=== PATIENT | male | born 1955 | race African-American/Black ===

== ENCOUNTER 2017-06-16 21:28 | Inpatient (IN) | payer OTHER ==
[~2017-06-16] VITALS: Ht 182.9 cm; Wt 61.0 kg
[2017-06-16] MEDS: ASPIRIN 81 MG TAB PO STA ×2 (21:53→21:55)
[2017-06-16 22:10] LABS: BASOPHILS % 0.5 % (0.0-2.0); EOSINOPHILS # 0.1 10^3/ul (0.0-0.5); EOSINOPHILS % 2.2 % (0.0-7.0); HEMATOCRIT 33.2 % (42.0-52.0); HEMOGLOBIN 10.2 g/dl (14.0-18.0); LYMPHOCYTES # 1.1 10^3/ul (0.8-2.9); LYMPHOCYTES % 26.1 % (15.0-51.0); MEAN CORPUSCULAR HEMOGLOBIN 25.5 pg (29.0-33.0); MEAN CORPUSCULAR HGB CONC 30.7 g/dl (32.0-37.0); MEAN PLATELET VOLUME 12.1 fl (7.4-10.4); MONOCYTE # 0.4 10^3/ul (0.3-0.9); MONOCYTES % 10.1 % (0.0-11.0); NEUTROPHIL # 2.5 10^3/ul (1.6-7.5); NEUTROPHILS % 60.9 % (39.0-77.0); PLATELET COUNT 183 10^3/UL (140-415); RED CELL DISTRIBUTION WIDTH 15.4 % (11.5-14.5); WHITE BLOOD COUNT 4.1 10^3/ul (4.8-10.8)
--- NOTE | 2017-06-16 22:25 | RADRPT ---
PROCEDURE: XR Chest. CLINICAL INDICATION: Chest pain TECHNIQUE: Single frontal view of the chest was obtained COMPARISON: None FINDINGS: The heart is enlarged. The thoracic aorta is calcified. The lungs are clear. There is no pleural effusion or pneumothorax. RPTAT: AA IMPRESSION: Mild cardiomegaly. Calcified aorta consistent with atherosclerotic disease. .Quintin Brewer MD, MD Date Time Electronically viewed and signed by .Quintin Brewer MD, on 06/16/2017 22:25 .S/
[2017-06-16 22:29] LABS: CALCIUM 8.9 mg/dl (8.4-10.2); CREATININE 0.59 mg/dl (0.61-1.24); POTASSIUM 3.8 mmol/L (3.5-5.1)
[2017-06-16] MEDS ORDERED: ONDANSETRON 4 MG INJ IV STA (22:38)
[2017-06-16] MEDS ORDERED: HYDROmorphONE 1 MG/ML SYG IV STA (22:38)
[2017-06-16 22:40] LABS: TROPONIN-I 0.027 ng/ml (0.00-0.12)
[2017-06-16] MEDS ORDERED: FLUCONAZOLE 400 MG/NS (PMX) 200 ML IVPB ONE (23:00)
--- NOTE | 2017-06-16 23:44 | ERD ---
ER Documentation Chief Complaint Chief Complaint stabbing CP intermittant x 2wks, worse w/ cough, fever 101.6 1 hr ago HPI This is 62-year-old male with a history of HIV with AIDS progression. He states he is having pain in his mouth and esophagus when he swallows. He does have severe chronic thrush. Said he had a 101.6 temperature before coming to the ER tonight but no temperature here. He said he took his temperature orally. The patient says he had a productive clear cough as well. No vomiting diarrhea no headache no stiff neck no photophobia. The patient's viral load is 120,000, CD4 count is 107 at last check. The patient says he is unable to eat solid foods but can sip water slowly. He complains of sharp pain in the mid chest every time he swallows and only when he swallows. The patient will not speak to me and writes on a pad of paper, he says it hurts too much to talk ROS All systems reviewed and are negative except as per history of present illness. Allergies Allergies: Coded Allergies: aspirin (Verified Allergy, Unknown, 06/16/17) PMhx/Soc History of Surgery: No Anesthesia Reaction: No Hx Neurological Disorder: No Hx Respiratory Disorders: No Hx Cardiac Disorders: No Hx Psychiatric Problems: No Hx Miscellaneous Medical Probl: Yes (HIV ) Hx Alcohol Use: No Hx Substance Use: Yes Hx Tobacco Use: Yes Smoking Status: Current every day smoker FmHx Family History: No coronary disease Physical Exam Vitals Vital Signs Date Time Temp Pulse Resp B/P Pulse Ox O2 Delivery O2 Flow Rate FiO2 06/16/17 22:06 Nasal Cannula 2 06/16/17 21:41 98.6 108 22 100 Physical Exam Const: Well-developed, well-nourished Head: Atraumatic, normocephalic Eyes: Normal Conjunctiva, PERRLA, EOMI, normal sclera, no nystagmus ENT: Normal External Ears, severe oral pharyngeal thrush Neck: Full range of motion. No meningismus, no lymphadenopathy. Resp: Clear to auscultation bilaterally, no wheezing, rhonchi, rales Cardio: Regular rate and rhythm, no murmurs, S1 S2 present Abd: Soft, non tender x 4, non distended. Normal bowel sounds, no guarding or rebound, no pulsitile abdominal masses or bruits Skin: No petechiae or rashes, no ecchymosis , no maculopapular rash Back: No midline or flank tenderness Ext: No cyanosis, or edema, FROM x 4, normal inspection, neurovascularly intact x 4 Neur: Awake and alert, STR 5/5 x 4, sensation intact x 4, no focal findings, cerebellum intact Psych: Normal Mood and Affect Result Diagram: 06/16/17214406/16/172144 Results 24 hrs Laboratory Tests Test 06/16/17 21:45 White Blood Count 4.110^3/ul Red Blood Count 4.0010^6/ul Hemoglobin 10.2g/dl Hematocrit 33.2% Mean Corpuscular Volume 83.0fl Mean Corpuscular Hemoglobin 25.5pg Mean Corpuscular Hemoglobin Concent 30.7g/dl Red Cell Distribution Width 15.4% Platelet Count 87839^3/UL Mean Platelet Volume 12.1fl Neutrophils % 60.9% Lymphocytes % 26.1% Monocytes % 10.1% Eosinophils % 2.2% Basophils % 0.5% Nucleated Red Blood Cells % 0.0/100WBC Neutrophils # 2.510^3/ul Lymphocytes # 1.110^3/ul Monocytes # 0.410^3/ul Eosinophils # 0.110^3/ul Basophils # 0.010^3/ul Nucleated Red Blood Cells # 0.010^3/ul Sodium Level 143mmol/L Potassium Level 3.8mmol/L Chloride Level 103mmol/L Carbon Dioxide Level 28mmol/L Anion Gap 16 Blood Urea Nitrogen 19mg/dl Creatinine 0.59mg/dl Glucose Level 134mg/dl Calcium Level 8.9mg/dl Troponin I 0.027ng/ml B-Type Natriuretic Peptide 5720PG/ML HIV (1&2) Antibody REACTIVE Current Medications Medications (Trade) Dose Ordered Sig/Deborah Route PRN Reason Start Time Stop Time Status Last Admin Dose Admin Aspirin 162 mg 162 mg ONCE STAT PO 06/16/17 21:42 06/16/17 21:43 DC Fluconazole (Diflucan 400 Mg/ NS (Pmx)) 200 ml @ 100 mls/hr ONCE ONCE IVPB 06/16/17 23:00 06/17/17 00:59 06/16/17 23:35 Hydromorphone HCl (Dilaudid) 1 mg ONCE STAT IV 06/16/17 22:38 06/16/17 22:40 DC 06/16/17 22:59 Ondansetron HCl 4 mg 4 mg ONCE STAT IV 06/16/17 22:38 06/16/17 22:40 DC 06/16/17 22:59 Sodium Chloride (NS) 1,000 ml @ 80 mls/hr [id number] IV 06/17/17 00:00 06/17/17 12:29 Ondansetron HCl (Zofran Inj) 4 mg BRIDGE ORDER PRN IV NAUSEA AND/OR VOMITING 06/17/17 00:00 06/17/17 23:59 Acetaminophen (Tylenol Tab) 650 mg ER BRIDGE PRN PO MILD PAIN/FEVER 06/17/17 00:00 06/17/17 23:59 Procedures/MDM PROCEDURE: XR Chest. CLINICAL INDICATION: Chest pain TECHNIQUE: Single frontal view of the chest was obtained COMPARISON: None FINDINGS: The heart is enlarged. The thoracic aorta is calcified. The lungs are clear. There is no pleural effusion or pneumothorax. RPTAT: AA IMPRESSION: Mild cardiomegaly. Calcified aorta consistent with atherosclerotic disease. .Quintin Brewer MD, MD Date Time Electronically viewed and signed by .Quintin Brewer MD, MD on 06/16/2017 22: 25 .S/ CC: GEOFFREY CALABRESE DO Patient's white blood count is 4.1, chest x-ray is clear. Patient is having severe esophageal thrush I did give him a dose of 400 mg of intravenous fluconazole. Patient has limited ability to swallow his saliva and mild fluids. The patient said he had a 101.6 fever but there is none here. We will send off a urinalysis and get urine and blood cultures and admit to the hospital for Aneta esophagitis that is severe enough is limiting his oral intake EKG: Rate/Rhythm: Sinus tachycardia heart rate 104 QRS, ST, QT: NORMAL MS, QRS, QT] Impression: NORMAL EKG Departure Diagnosis: Primary Impression: Aneta esophagitis Additional Impression: AIDS Condition: Stable BELLA MOODY DO Jun 16, 2017 23:44
[2017-06-17] MEDS ORDERED: SOD CHLORIDE 0.9% 1,000 ML IV SCH
[2017-06-17] MEDS ORDERED: ACETAMINOPHEN 325 MG TAB PO PRN
[2017-06-17 01:05] VITALS: PULSE 104
[2017-06-17 01:56] VITALS: BP 130/91; PULSE 100; RESP 18
[2017-06-17 02:04] VITALS: Ht 182.9 cm; Wt 61.0 kg
[2017-06-17] MEDS ORDERED: GABA800T PO (03:31)
[2017-06-17] MEDS ORDERED: LANT3I SC (03:31)
[2017-06-17] MEDS ORDERED: METF500T4 PO (03:31)
[2017-06-17] MEDS ORDERED: LISI10TA2 PO (03:31)
[2017-06-17] MEDS ORDERED: ACETAMINOPHEN 650 MG SUPP PR PRN (04:00)
[2017-06-17] MEDS ORDERED: ALBUTEROL/IPRATROPIUM (NEB) 3 ML AMP HHN PRN (04:00)
[2017-06-17] MEDS ORDERED: LIDOCAINE 2% VISC 15 ML CUP PO PRN (04:00)
[2017-06-17] MEDS ORDERED: NACL 0.9% 3 ML SYG IV SCH (04:00)
[2017-06-17] MEDS ORDERED: OXYCODONE/ACETAMINOPHEN (5/325) TAB PO PRN (04:00)
[2017-06-17] MEDS ORDERED: ONDANSETRON 4 MG INJ IV PRN ×2 (04:00)
[2017-06-17] MEDS ORDERED: GLUCAGON 1 MG INJ IM PRN (04:15)
[2017-06-17] MEDS ORDERED: DEXTROSE 50% 50 ML SYRINGE IV PRN ×2 (04:15)
[2017-06-17] MEDS ORDERED: GLUCOSE GEL 15 GRAM TUBE PO PRN ×2 (04:15)
[2017-06-17] MEDS ORDERED: GLUCOSE GEL 15 GRAM TUBE BUCCAL PRN (04:15)
[2017-06-17] MEDS ORDERED: LORAZEPAM 2 MG INJ IV PRN ×2 (04:30)
[2017-06-17] MEDS: morphine 2 MG INJ IV PRN ×3 (04:54→22:35)
[2017-06-17] MEDS: NYSTATIN SUSP 5 ML CUP PO SCH ×5 (04:54→21:29)
[2017-06-17] MEDS: DEXTROSE 5%-0.45% NACL 1,000 ML IV SCH ×3 (05:01→23:47)
[2017-06-17 06:35] LABS: BASOPHILS % 0.5 % (0.0-2.0); EOSINOPHILS # 0.1 10^3/ul (0.0-0.5); EOSINOPHILS % 1.7 % (0.0-7.0); HEMATOCRIT 31.5 % (42.0-52.0); HEMOGLOBIN 9.8 g/dl (14.0-18.0); LYMPHOCYTES # 1.1 10^3/ul (0.8-2.9); LYMPHOCYTES % 25.5 % (15.0-51.0); MEAN CORPUSCULAR HEMOGLOBIN 25.9 pg (29.0-33.0); MEAN CORPUSCULAR HGB CONC 31.1 g/dl (32.0-37.0); MEAN CORPUSCULAR VOLUME 83.1 fl (82.0-101.0); MEAN PLATELET VOLUME 11.6 fl (7.4-10.4); MONOCYTE # 0.4 10^3/ul (0.3-0.9); MONOCYTES % 9.9 % (0.0-11.0); NEUTROPHIL # 2.6 10^3/ul (1.6-7.5); NEUTROPHILS % 61.9 % (39.0-77.0); PLATELET COUNT 184 10^3/UL (140-415); RED BLOOD COUNT 3.79 10^6/ul (4.70-6.10); RED CELL DISTRIBUTION WIDTH 15.6 % (11.5-14.5); WHITE BLOOD COUNT 4.2 10^3/ul (4.8-10.8)
[2017-06-17 06:50] LABS: ALBUMIN 3.5 g/dl (3.3-4.9); ALBUMIN/GLOBULIN RATIO 0.85; BILIRUBIN,INDIRECT 0.2 mg/dl (0-1.1); BILIRUBIN,TOTAL 0.2 mg/dl (0.2-1.3); CALCIUM 8.2 mg/dl (8.4-10.2); CREATININE 0.59 mg/dl (0.61-1.24); MAGNESIUM 1.7 mg/dl (1.7-2.5); PHOSPHORUS 3.6 mg/dl (2.5-4.9); TOTAL PROTEIN 7.6 g/dl (6.1-8.1)
[2017-06-17] MEDS: INSULIN ASPART [NOVOLOG] 3 ML PEN SC SCH ×4 (07:00→21:00)
[2017-06-17 07:03] LABS: TROPONIN-I 0.027 ng/ml (0.00-0.12)
[2017-06-17 07:11] LABS: CK-MB 3.09 ng/ml (0.0-2.4)
--- NOTE | 2017-06-17 07:43 | HP ---
Date/Time of Note Date/Time of Note DATE: 06/17/17 TIME: 07:31 Assessment/Plan VTE Prophylaxis VTE Prophylaxis Intervention: heparin Lines/Catheters IV Catheter Type (from Nrsg): Saline Lock Assessment/Plan Assessment/Plan 1. Dysphagia and odynophagia, secondary to oral/esophageal Aneta -IV fluconazole, nystatin swish and swallow, viscous lidocaine -ID and a GI consult -Pain management 2. History of HIV, AIDS per CD4 count (per report 107) -Will check CD4 count and viral load to verify -will start him on prophylactic daily Bactrim and weekly azithromycin -ID consult 3. Type 2 diabetes Check A1c Insulin while in-house 4. Alcohol abuse -Patient has been drinking half a gallon of chidi on a daily basis, last drink was yesterday He will be placed on a banana bag, Librium, IV fluid, with as needed Ativan for withdrawal symptoms 5. Chest pain, rule out ACS -Aspirin, supplemental oxygen, with as needed nitro morphine -Trend troponins -Obtain a 2D echo -Will consider cardiology consult 6. Diarrhea -Check stool culture and C. difficile -will leave the decision up to ID to see if workup for opportunistic infection is warranted HPI/ROS Admit Date/Time Admit Date/Time Jun 17, 2017 at 00:02 Hx of Present Illness This is a 62-year-old male with a history of hypertension, type 2 diabetes, hep C, HIV, alcohol abuse who presented to the ER complaining of "thrush", difficulty and painful swallowing. Note that patient is having pain when speaking and as such gathering information has been difficult. Symptoms started several weeks ago. He also reported productive cough and a diarrhea described as loose. Also complains of diffuse chest pain for the past 2 weeks, describes as stabbing, usually associated with cough and when taking a deep breath. He said prior to arrival to the ER, he had temperature of 101.6. He has a history of bilateral knee surgery and for the most part is wheelchair dependent. He also reported to the infection for which he has been taking amoxicillin. Reported recent CD4 counts of 107 and viral load of 120,000. He said he has been compliant with his HIV medications. When he presented to the ER he was tachycardic with a heart rate of around 110 and a respiratory rate of 22 otherwise his vitals were stable. Chest x-ray shows mild cardiomegaly otherwise no acute findings. Lab shows WBC of 4.1, hemoglobin 10.2. BNP is 5700. He said he has been drinking on a daily basis usually about half a gallon of chidi. Last drink was yesterday. . PMH/Family/Social Social History Smoking Status: Current every day smoker Exam/Review of Systems Vital Signs Vitals Vital Signs Date Time Temp Pulse Resp B/P Pulse Ox O2 Delivery O2 Flow Rate FiO2 06/17/17 01:56 99.9 100 18 130/91 100 Room Air 06/16/17 22:06 2 Intake and Output 06/16/17 06/16/17 06/17/17 15:00 23:00 07:00 Output Total 350 ml Balance -350 ml Exam Constitutional: distress Head: atraumatic, normocephalic Eyes: PERRL Respiratory: diminished breath sounds Cardiovascular: other (Tachycardic with regular rhythm) Gastrointestinal: soft, tender Musculoskeletal: other (Muscle wasting noted. Bilateral knees with old surgical scar) Labs Result Diagram: 06/17/1760406/17/17 0604 Medications Medications Current Medications Sodium Chloride 1,000 ml @ 80 mls/hr [id number] IV ; Start 06/17/17 at 00:00; Stop 06/17/17 at 12:29 Dextrose/Sodium Chloride (D5-1/2ns) 1,000 ml @ 100 mls/hr Q10H IV Last administered on 06/17/17 05:01; Admin Dose 100 MLS/HR; Start 06/17/17 at 03: 47 Ondansetron HCl (Zofran Inj) 4 mg Q6H PRN IV NAUSEA AND/OR VOMITING; Start at 04:00 Acetaminophen (Tylenol Supp) 650 mg Q6H PRN [place] PAIN LEVEL 1-3 OR FEVER; Start 06/17/17 at 04:00 Oxycodone/ Acetaminophen (Percocet (5/ 325)) 2 tab Q6H PRN PO SEVERE PAIN LEVEL 7-10; Start 06/17/17 at 04:00 Morphine Sulfate (morphine) 2 mg Q4H PRN IV SEVERE PAIN LEVEL 7-10 Last administered on 06/17/17 04:54; Admin Dose 2 MG; Start 06/17/17 at 04:00 Enoxaparin Sodium (Lovenox) 40 mg DAILY SC ; Start 06/17/17 at 09:00 Diagnostic Test (Pha) (Accu-Chek) 1 ea 02 XX ; Start 06/18/17 at 02:00 Insulin Aspart (Novolog Insulin Pen) NOVOLOG *MILD* ALGORI... Q6 SC Last administered on 06/17/17t 07:00; Admin Dose 2 UNIT; Start 06/17/17 at 06:00 Gabapentin (Neurontin) 800 mg TID PO ; Start 06/17/17 at 09:00 Insulin Glargine (Lantus) 20 unit QHS SC ; Start 06/17/17 at 21:00 Lisinopril (Zestril) 10 mg QHS PO ; Start 06/17/17 at 21:00 Trimethoprim/ Sulfamethoxazole (Bactrim (Ds)) 1 tab BID PO ; Start 06/17/17 at 09:00 Azithromycin 1200 mg 1,200 mg Q7D PO ; Start 06/17/17 at 09:00 Fluconazole (Diflucan 200 Mg/ NS (Pmx)) 100 ml @ 100 mls/hr DAILY IVPB ; Start 06/17/17 at 09:00 Nystatin (Nystatin Susp) 5 ml QID PO Last administered on 06/17/17t 04:54; Admin Dose 5 ML; Start 06/17/17 at 04:00 Lidocaine (Xylocaine (Viscous)) 15 ml QID PRN PO oral pain; Start 06/17/17 at 04:00 Nicotine (Nicoderm 21 Mg/ 24hr) 1 patch DAILY TRANSDERM ; Start 06/17/17 at 09: 00 Chlordiazepoxide 50 mg 50 mg TID PO ; Start 06/17/17 at 09:00 Multivitamins/ Thiamine HCl/ Folic Acid/Sodium Chloride (Mvi Adult/ Vitamin B1/ Folic Acid/NS) 1,011.2 ml @ 125 mls/ hr DAILY@09 IVPB ; Start 06/17/17 at 09: 00; Stop 06/20/17 at 15:00 Lorazepam (Ativan) 2 mg Q1H PRN IV withdrawal; Start 06/17/17 at 04:30 Lorazepam (Ativan) 1 mg Q3H PRN IV anxiety; Start 06/17/17 at 04:30 Metoprolol Tartrate (Lopressor) 12.5 mg BID NGT ; Start 06/17/17 at 09:00 Miscellaneous Information 1 ea NOTE XX ; Start 06/17/17 at 04:15 Glucose (Glutose) 15 gm Q15M PRN PO DECREASED GLUCOSE; Start 06/17/17 at 04:15 Glucose (Glutose) 22.5 gm Q15M PRN PO DECREASED GLUCOSE; Start 06/17/17 at 04: 15 Dextrose (D50w Syringe) 25 ml Q15M PRN IV DECREASED GLUCOSE; Start 06/17/17 at 04:15 Dextrose (D50w Syringe) 50 ml Q15M PRN IV DECREASED GLUCOSE; Start 06/17/17 at 04:15 Glucagon (Glucagen) 1 mg Q15M PRN IM DECREASED GLUCOSE; Start 06/17/17 at 04: 15 Glucose (Glutose) 15 gm Q15M PRN BUCCAL DECREASED GLUCOSE; Start 06/17/17 at 04:15 NUNO JIMÉNEZ MD Jun 17, 2017 07:41
[2017-06-17 07:53] VITALS: BP 117/78; RESP 20
[2017-06-17] MEDS ORDERED: FLUCONAZOLE 200 MG/NS (PMX) 100 ML IVPB SCH ×2 (09:00→15:00)
[2017-06-17] MEDS ORDERED: TRIMETHOPRIM/SULFAMETHOX (DS) TAB PO SCH (09:00)
[2017-06-17] MEDS ORDERED: AZITHROMYCIN 600 MG TAB PO SCH (09:00)
[2017-06-17 09:51] LABS: TROPONIN-I 0.027 ng/ml (0.00-0.12)
[2017-06-17 09:52] LABS: CK-MB 3.36 ng/ml (0.0-2.4)
[2017-06-17] MEDS: MULTIVITAMINS 10 ML, THIAMINE 100 MG, FOLIC ACID 1 MG in SOD CHLORIDE 0.9% 1,000 ML IVPB SCH (09:53)
[2017-06-17] MEDS: GABAPENTIN 400 MG CAP PO SCH ×3 (09:54→21:29)
[2017-06-17] MEDS: NICOTINE (21 MG/24 HR) PATCH TRANSDERM SCH (09:54)
[2017-06-17] MEDS: METOPROLOL 25 MG TAB NGT SCH ×2 (09:56→21:32)
[2017-06-17] MEDS: ENOXAPARIN 40 MG/0.4 ML SYG SC SCH (10:02)
[2017-06-17] MEDS: CHLORDIAZEPOXIDE 25 MG CAP PO SCH ×3 (10:02→21:31)
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
--- NOTE | 2017-06-17 13:02 | CONS ---
Date/Time of Note Date/Time of Note DATE: 06/17/17 TIME: 12:31 Assessment/Plan Assessment/Plan Chief Complaint/Hosp Course Summary Assessment and Plan: Assessment: Dysphagia and odynophagia secondary to oral Aneta and esophageal candidiasis vs reflux esophagitis AIDS per CD4 count (per report 107) Diabetes mellitus type 2 Alcohol abuse Chest pain Diarrhea Plan: C. difficile culture pending Stool culture pending EGD- Monday Continue antifungal treatment Endoscopy - risks/benefits/alternatives/indications of procedure and sedation/ anesthesia discussed with patient who states understanding and gives informed consent to proceed. PARQ held and questions were answered. Patient seen in collaboration with Chief Complaint/Reason for Visit: Dysphagia Odynophagia History of Present Illness: This is a 62-year-old male with past medical history of AIDS, diabetes mellitus type 2, alcohol abuse, hepatitis C (treated), and hypertension. Presented to the ER with dysphagia and odynophagia secondary to candidiasis. At the time of examination patient stated it was difficult for him to speak due to the pain he also had received Librium and morphine and continue to dose off during interview. Therefore this HPI is limited, most of information obtained from previous medical records. Apparently patient has had a long-standing history of dysphagia going back to 2000, a bedside swallow eval was performed, and deemed appropriate to tolerate mech soft or full liquid diet. He had a previous EGD 10 years ago, he is not sure about the results but believes they were normal. With current presentation, we will plan for EGD Monday, as this is not an emergent procedure. .Stool work-up has been order and currently pending. Will also start PPI via IV, continue to monitor lab studies, and order additional lab work-up. Past Medical History: Hepatitis C Hypertension AIDS Diabetes mellitus type 2 Alcohol abuse Allergies: Aspirin PHYSICAL EXAMINATION: GENERAL: Cachectic, oriented x3 in no acute distress SKIN: No lesions, no stigmata chronic liver disease, no evidence of bleeding diathesis LYMPHATIC: No palpable lymphadenopathy. HEAD: Normocephalic, atraumatic, no tenderness. EYES: Pupils equal reactive to light and accommodation, full extraocular movements, sclera clear, non-icteric, no discharge. EARS/NOSE AND THROAT: Ears normal, nose normal NECK: Supple, CHEST: Inspection within normal limits. CARDIOVASCULAR: Heart: Regular rate and rhythm, . RESPIRATORY: Lungs clear to auscultation GASTROINTESTINAL AND LIVER: Abdomen: Soft, non tenderness, non-distended, no hernias, no masses, no organomegaly, no ascites, no guarding, no rebound tenderness, normoactive bowel sounds. Rectal: Deferred. EXTREMITIES: No cyanosis, clubbing or edema. Problems: Consultation Date/Type/Reason Admit Date/Time Jun 17, 2017 at 00:02 Date of Consultation: Jun 17, 2017 Type of Consultation: GI Reason for Consultation Dysphagia Odynophagia Eyes: no complaints ENT: dysphagia Cardiovascular: chest pain Genitourinary: no complaints Musculoskeletal: no complaints Skin: no complaints Neurologic: no complaints Past Medical History Medical History: diabetes, hypertension, other (AIDS, Hep C (treated), ) Social History Alcohol Use: heavy Smoking Status: Current every day smoker Drug Use: heroin Exam/Review of Systems Vital Signs Vitals Vital Signs Date Time Temp Pulse Resp B/P Pulse Ox O2 Delivery O2 Flow Rate FiO2 06/17/17 07:53 98.0 105 20 117/78 95 06/17/17 01:56 Room Air 06/16/17 22:06 2 Intake and Output 06/16/17 06/16/17 06/17/17 15:00 23:00 07:00 Output Total 350 ml Balance -350 ml Results Result Diagram: 06/17/17 0606/17/17 0604 Results 24 hrs Laboratory Tests Test 06/16/17 21:45 06/17/17 06:04 06/17/17 06:05 06/17/17 06:55 White Blood Count 4.1 L 4.2 L Red Blood Count 4.00 L 3.79 L Hemoglobin 10.2 L 9.8 L Hematocrit 33.2 L 31.5 L Mean Corpuscular Volume 83.0 83.1 Mean Corpuscular Hemoglobin 25.5 L 25.9 L Mean Corpuscular Hemoglobin Concent 30.7 L 31.1 L Red Cell Distribution Width 15.4 H 15.6 H Platelet Count 183 184 Mean Platelet Volume 12.1 H 11.6 H Neutrophils % 60.9 61.9 Lymphocytes % 26.1 25.5 Monocytes % 10.1 9.9 Eosinophils % 2.2 1.7 Basophils % 0.5 0.5 Nucleated Red Blood Cells % 0.0 0.0 Neutrophils # 2.5 2.6 Lymphocytes # 1.1 1.1 Monocytes # 0.4 0.4 Eosinophils # 0.1 0.1 Basophils # 0.0 0.0 Nucleated Red Blood Cells # 0.0 0.0 Sodium Level 143 139 Potassium Level 3.8 4.0 Chloride Level 103 101 Carbon Dioxide Level 28 29 Anion Gap 16 13 Blood Urea Nitrogen 19 15 Creatinine 0.59 L 0.59 L Glucose Level 134 152 Calcium Level 8.9 8.2 L Troponin I 0.027 0.027 B-Type Natriuretic Peptide 5720 H HIV (1&2) Antibody REACTIVE H Phosphorus Level 3.6 Magnesium Level 1.7 Total Bilirubin 0.2 Direct Bilirubin 0.00 Indirect Bilirubin 0.2 Aspartate Amino Transf (AST/SGOT) 75 H Alanine Aminotransferase (ALT/SGPT) 69 Alkaline Phosphatase 121 Creatine Kinase 58 Creatine Kinase Index 5.3 Creatinine Kinase MB (Mass) 3.09 H Total Protein 7.6 Albumin 3.5 Globulin 4.10 H Albumin/Globulin Ratio 0.85 Triglycerides Level 67 Cholesterol Level 139 LDL Cholesterol, Calculated 80 HDL Cholesterol 46 Cholesterol/HDL Ratio 3.0 Thyroid Stimulating Hormone (TSH) 0.930 Hemoglobin A1c 7.9 H Bedside Glucose 188 Test 06/17/17 08:36 Creatine Kinase 63 Creatine Kinase Index 5.3 Creatinine Kinase MB (Mass) 3.36 H Troponin I 0.027 Medications Medications Current Medications Dextrose/Sodium Chloride (D5-1/2ns) 1,000 ml @ 100 mls/hr Q10H IV Last administered on 06/17/17 05:01; Admin Dose 100 MLS/HR; Start 06/17/17 at 03: 47 Ondansetron HCl (Zofran Inj) 4 mg Q6H PRN IV NAUSEA AND/OR VOMITING; Start at 04:00 Acetaminophen (Tylenol Supp) 650 mg Q6H PRN [place] PAIN LEVEL 1-3 OR FEVER; Start 06/17/17 at 04:00 Oxycodone/ Acetaminophen (Percocet (5/ 325)) 2 tab Q6H PRN PO SEVERE PAIN LEVEL 7-10; Start 06/17/17 at 04:00 Morphine Sulfate (morphine) 2 mg Q4H PRN IV SEVERE PAIN LEVEL 7-10 Last administered on 06/17/17 09:57; Admin Dose 2 MG; Start 06/17/17 at 04:00 Enoxaparin Sodium (Lovenox) 40 mg DAILY SC Last administered on 06/17/17 10: 02; Admin Dose 40 MG; Start 06/17/17 at 09:00 Diagnostic Test (Pha) (Accu-Chek) 1 ea 02 XX ; Start 06/18/17 at 02:00 Insulin Aspart (Novolog Insulin Pen) NOVOLOG *MILD* ALGORI... Q6 SC Last administered on 06/17/17 07:00; Admin Dose 2 UNIT; Start 06/17/17 at 06:00 Gabapentin (Neurontin) 800 mg TID PO Last administered on 06/17/17 09:54; Admin Dose 800 MG; Start 06/17/17 at 09:00 Insulin Glargine (Lantus) 20 unit QHS SC ; Start 06/17/17 at 21:00 Lisinopril (Zestril) 10 mg QHS PO ; Start 06/17/17 at 21:00 Trimethoprim/ Sulfamethoxazole (Bactrim (Ds)) 1 tab BID PO Last administered on 06/17/17 09:54; Admin Dose 1 TAB; Start 06/17/17 at 09:00 Azithromycin 1200 mg 1,200 mg Q7D PO Last administered on 06/17/17 09:54; Admin Dose 1,200 MG; Start 06/17/17 at 09:00 Fluconazole (Diflucan 200 Mg/ NS (Pmx)) 100 ml @ 100 mls/hr DAILY IVPB Last administered on 06/17/17 09:53; Admin Dose 100 MLS/HR; Start 06/17/17 at 09: 00 Nystatin (Nystatin Susp) 5 ml QID PO Last administered on 06/17/17 09:53; Admin Dose 5 ML; Start 06/17/17 at 04:00 Lidocaine (Xylocaine (Viscous)) 15 ml QID PRN PO oral pain; Start 06/17/17 at 04:00 Nicotine (Nicoderm 21 Mg/ 24hr) 1 patch DAILY TRANSDERM Last administered on 09:54; Admin Dose 1 PATCH; Start 06/17/17 at 09:00 Chlordiazepoxide 50 mg 50 mg TID PO Last administered on 06/17/17 10:02; Admin Dose 50 MG; Start 06/17/17 at 09:00 Multivitamins/ Thiamine HCl/ Folic Acid/Sodium Chloride (Mvi Adult/ Vitamin B1/ Folic Acid/NS) 1,011.2 ml @ 125 mls/ hr DAILY@09 IVPB Last administered on 09:53; Admin Dose 125 MLS/HR; Start 06/17/17 at 09:00; Stop 06/20/17 at 15:00 Lorazepam (Ativan) 2 mg Q1H PRN IV withdrawal; Start 06/17/17 at 04:30 Lorazepam (Ativan) 1 mg Q3H PRN IV anxiety; Start 06/17/17 at 04:30 Metoprolol Tartrate (Lopressor) 12.5 mg BID NGT Last administered on 09:56; Admin Dose 12.5 MG; Start 06/17/17 at 09:00 Miscellaneous Information 1 ea NOTE XX ; Start 06/17/17 at 04:15 Glucose (Glutose) 15 gm Q15M PRN PO DECREASED GLUCOSE; Start 06/17/17 at 04:15 Glucose (Glutose) 22.5 gm Q15M PRN PO DECREASED GLUCOSE; Start 06/17/17 at 04: 15 Dextrose (D50w Syringe) 25 ml Q15M PRN IV DECREASED GLUCOSE; Start 06/17/17 at 04:15 Dextrose (D50w Syringe) 50 ml Q15M PRN IV DECREASED GLUCOSE; Start 06/17/17 at 04:15 Glucagon (Glucagen) 1 mg Q15M PRN IM DECREASED GLUCOSE; Start 06/17/17 at 04: 15 Glucose (Glutose) 15 gm Q15M PRN BUCCAL DECREASED GLUCOSE; Start 06/17/17 at 04:15 Copies To: CC: SUDHIR PARK MD, VICTORIA Jun 17, 2017 12:50
[2017-06-17 13:38] VITALS: BP 105/71; RESP 20
--- NOTE | 2017-06-17 13:42 | CONS ---
DATE OF ADMISSION: 06/17/2017 DATE OF CONSULTATION: 06/17/2017 DATE OF CONSULTATION: 06/17/2017 TYPE OF CONSULTATION: Infectious Disease. REASON FOR CONSULTATION: Antibiotic management. HISTORY OF PRESENT ILLNESS: Tom Whitaker is a 62-year-old male who has numerous problems and is ladarius ng seen for antibiotic management. His past problems include: 1. Hypertension. 2. Adult-onset diabetes mellitus. 3. Human immunodeficiency virus. 4. Hepatitis C. 5. Alcohol abuse. Acutely, the patient presented with thrush, with difficulty and painful swallowing. He was having p ain when speaking. He also reported a productive cough and he describes diarrhea as being loose. Tracy coats had some diffuse chest pain 2 weeks ago, described as stabbing, especially when coughing or taking a deep breath. He had a temperature of 101.6. He has a history of bilateral knee surgery, for the most part, is wheelchair dependent. He also reported that he had an infection for which he has bee n taking amoxicillin. His reported CD4 count is 107, R load 120,000. Says he has been compliant wi th his HIV medicines. In the emergency room, he was tachycardic to 110, respiratory rate of 22. Ch est x-ray showed cardiomegaly, mild. His white count on admission was 4.2, H and H 9.8 and 31.5, pl atelet count 184,000. BUN and creatinine 15/0.59 and glucose of 152. PAST MEDICAL HISTORY: Operations as outlined. FAMILY HISTORY: Noncontributory. SOCIAL HISTORY: He is an everyday smoker. ALLERGIES: NONE TO PENICILLIN, SULFA AND FOODS. MEDICATIONS: Per chart. REVIEW OF SYSTEMS: Noncontributory. PHYSICAL EXAMINATION: GENERAL: The patient is relatively ill-appearing male who is awake, responsive, in some mild distre ss. VITAL SIGNS: Stable. He is afebrile. SKIN: Without generalized rash. His temperature is 99.9 on admission. HEENT: Within normal limits. NECK: Supple. LYMPH NODES: None palpable. CHEST: Decreased breath sounds at the bases. HEART: Without murmur or gallop. He is tachycardic. ABDOMEN: Soft, nontender, without organosplenomegaly or masses. EXTREMITIES: Without cyanosis, clubbing, or edema. RECTAL/GENITAL: Exam is deferred. He has some muscle wasting. NEUROLOGIC: No focal neurological abnormalities. IMPRESSION AND PLAN: Patient presents now with dysphagia, probably secondary to Aneta esophagitis . He was placed on IV fluconazole, nystatin swish and swallow, lidocaine. He has history of HIV. He was started on prophylactic Bactrim and weekly erythromycin. He needs to be on appropriate HIV m edications and he is currently I do not think on any, so we will have to place him on either Atripla or some combination of medications. We did an HIV, RNA by PCR. Lymphocyte subset panel. I will d ictate my findings to the hospitalist. Dictated By: MAURICE REIS MD, JD/NTS Conf#: [id number] DID#: [id number] CC: NUNO JIMÉNEZ MD;*End*
[2017-06-17] MEDS: CLOTRIMAZOLE 10 MG TROCHE MT SCH ×2 (18:54→21:30)
[2017-06-17 19:51] VITALS: BP 138/78; RESP 20
[2017-06-17] MEDS ORDERED: INSULIN GLARGINE [LANtus] 3 ML PEN SC SCH (21:00)
[2017-06-17] MEDS ORDERED: LISINOPRIL 10 MG TAB PO SCH (21:00)
[2017-06-18 02:00] VITALS: BP 101/69; RESP 20
[2017-06-18] MEDS ORDERED: ACCU-CHEK XX SCH ×2 (02:00)
[2017-06-18] MEDS: DEXTROSE 5%-0.45% NACL 1,000 ML IV SCH ×2 (02:55→09:47)
[2017-06-18 06:20] LABS: BASOPHILS % 0.2 % (0.0-2.0); EOSINOPHILS % 0.4 % (0.0-7.0); HEMATOCRIT 33.5 % (42.0-52.0); HEMOGLOBIN 10.3 g/dl (14.0-18.0); LYMPHOCYTES # 1.1 10^3/ul (0.8-2.9); LYMPHOCYTES % 20.7 % (15.0-51.0); MEAN CORPUSCULAR HEMOGLOBIN 25.8 pg (29.0-33.0); MEAN CORPUSCULAR HGB CONC 30.7 g/dl (32.0-37.0); MEAN PLATELET VOLUME 12.2 fl (7.4-10.4); MONOCYTE # 0.3 10^3/ul (0.3-0.9); MONOCYTES % 6.2 % (0.0-11.0); NEUTROPHIL # 3.7 10^3/ul (1.6-7.5); NEUTROPHILS % 72.1 % (39.0-77.0); PLATELET COUNT 169 10^3/UL (140-415); RED BLOOD COUNT 3.99 10^6/ul (4.70-6.10); RED CELL DISTRIBUTION WIDTH 15.9 % (11.5-14.5); WHITE BLOOD COUNT 5.2 10^3/ul (4.8-10.8)
[2017-06-18 06:48] LABS: CALCIUM 8.4 mg/dl (8.4-10.2); CREATININE 0.63 mg/dl (0.61-1.24); MAGNESIUM 1.9 mg/dl (1.7-2.5); PHOSPHORUS 3.4 mg/dl (2.5-4.9); POTASSIUM 4.3 mmol/L (3.5-5.1)
[2017-06-18 07:56] VITALS: BP 129/83; RESP 18
[2017-06-18] MEDS: INSULIN ASPART [NOVOLOG] 3 ML PEN SC SCH ×2 (08:03→12:49)
[2017-06-18] MEDS ORDERED: TRIMETHOPRIM/SULFAMETHOX (DS) TAB PO SCH (09:00)
[2017-06-18] MEDS ORDERED: VANCOMYCIN IV PER PHARMACY XX SCH (09:30)
[2017-06-18] MEDS: NYSTATIN SUSP 5 ML CUP PO SCH ×2 (09:39→12:38)
[2017-06-18] MEDS: MULTIVITAMINS 10 ML, THIAMINE 100 MG, FOLIC ACID 1 MG in SOD CHLORIDE 0.9% 1,000 ML IVPB SCH (09:39)
[2017-06-18] MEDS: CHLORDIAZEPOXIDE 25 MG CAP PO SCH ×2 (09:40→12:38)
[2017-06-18] MEDS: GABAPENTIN 400 MG CAP PO SCH ×2 (09:40→12:38)
[2017-06-18] MEDS: METOPROLOL 25 MG TAB NGT SCH (09:42)
[2017-06-18] MEDS: CLOTRIMAZOLE 10 MG TROCHE MT SCH ×2 (09:47→11:54)
[2017-06-18] MEDS: NICOTINE (21 MG/24 HR) PATCH TRANSDERM SCH (09:50)
[2017-06-18] MEDS: ENOXAPARIN 40 MG/0.4 ML SYG SC SCH (10:31)
--- NOTE | 2017-06-18 10:57 | RADRPT ---
Echocardiogram Report Patient Name: ANGIE DODGE Gender: Male Date: 1955 Study Date: 17-Jun-2017 Technology Education Instructor: NADEEN Location: [facility] Height(Cm): 183 Weight(Kg): 61 BSA: 1.76 Ref. Physician: NUNO JIMÉNEZ Quality: Adequate Procedures: Transthoracic echocardiogram with 2D, M-Mode, and Doppler examination. Indications: Chest Pain. 2D/M Mode Doppler Measurement Value Normal Ranges Measurement Value Normal Ranges AoR Diam MM 3.2 cm AV Peak Devonte 0.9 m/sec LVIDd 2D 5.2 3.5 - 5.6 cm AV Peak PG 3.1 mmHg LVIDs 2D 4.7 2.1 - 4.1 cm LVOT Peak Devonte 0.6 m/sec LVPWd 2D 1.1 0.6 - 1.1 cm LVOT Peak PG 1.4 mmHg IVSd 2D 1.1 0.6 - 1.1 cm EDV 2D 126.7 cm3 ESV 2D 102.8 cm3 LA Dimen 2D 3.9 2.3 - 4.0 cm Findings Left Ventricle: Normal left ventricular cavity size. Normal left ventricular wall thickness. Severe left ventricular systolic dysfunction. Ejection fraction is visually estimated at 30 %. Tissue Doppler/Mitral Doppler indices are indeterminate in this study due to the presence of tachy rhythm. E/E`=26. Right Ventricle: Normal right ventricular size. Normal right ventricular systolic function. Left Atrium: There is moderate enlargement of left atrium. LA Volume Index=37. Right Atrium: The right atrium is normal in size. Atrial Septum: Normal atrial septum. Mitral Valve: Normal appearance of the mitral valve. Moderate to severe mitral valve regurgitation. Aortic Valve: Normal appearance of the aortic valve. Trace aortic valve regurgitation. Tricuspid Valve: Normal appearance and function of the tricuspid valve with trace physiologic regurgitation. Pulmonic Valve: Pulmonic valve not well visualized. Pericardium: Normal pericardium with no significant pericardial effusion. No pleural effusion noted. Aorta: Normal aortic root. IVC: Normal size and normal respiratory collapse consistent with normal right atrial pressure. Pulmonary Artery: Not well visualized. Conclusions Normal left ventricular cavity size. Normal left ventricular wall thickness. Severe left ventricular systolic dysfunction. Ejection fraction is visually estimated at 30 %. Tissue Doppler/Mitral Doppler indices are indeterminate in this study due to the presence of tachy rhythm . E/E`=26. Normal appearance of the mitral valve. Moderate to severe mitral valve regurgitation. Normal appearance of the aortic valve. Trace aortic valve regurgitation. Normal appearance and function of the tricuspid valve with trace physiologic regurgitation. Electronically Signed By: Pradip Bernard 18-Jun-2017 10:56:04 -0800 Patient Name: ANGIE DODGE Study Date: 17-Jun-2017 [id number]
[2017-06-18] MEDS ORDERED: VANCOMYCIN 1.25 GM in SOD CHLORIDE 0.9% 250 ML IVPB SCH (11:00)
--- NOTE | 2017-06-18 11:19 | PN ---
Date/Time of Note Date/Time of Note DATE: 06/18/17 TIME: 11:17 Assessment/Plan VTE Prophylaxis VTE Prophylaxis Intervention: SCD's Lines/Catheters IV [facility] Peripheral IV Urinary Cath still in place: No Assessment/Plan Chief Complaint/Hosp Course Summary Assessment and Plan: Assessment: Dysphagia and odynophagia secondary to oral Aneta and esophageal candidiasis vs reflux esophagitis AIDS per CD4 count (per report 107) Diabetes mellitus type 2 Alcohol abuse Chest pain Diarrhea Plan: C. difficile culture pending Stool culture pending EGD- tomorrow clear liquids in am, NPO after 10am Continue antifungal treatment duplicate Problems: Exam/Review of Systems Vital Signs Vitals Vital Signs Date Time Temp Pulse Resp B/P Pulse Ox O2 Delivery O2 Flow Rate FiO2 06/18/17 07:56 98.0 85 18 129/83 95 06/17/17 01:56 Room Air 06/16/17 22:06 2 Intake and Output 06/17/17 06/17/17 06/18/17 15:00 23:00 07:00 Intake Total 1911.2 ml 900 ml Output Total 600 ml Balance 1311.2 ml 900 ml Results Result Diagram: 06/18/17 0533 06/18/17 0533 Results 24 hrs Laboratory Tests Test 06/17/17 12:36 06/17/17 17:16 06/17/17 21:41 06/18/17 05:33 Bedside Glucose 135 87 135 White Blood Count 5.2 # Red Blood Count 3.99 L Hemoglobin 10.3 L Hematocrit 33.5 L Mean Corpuscular Volume 84.0 Mean Corpuscular Hemoglobin 25.8 L Mean Corpuscular Hemoglobin Concent 30.7 L Red Cell Distribution Width 15.9 H Platelet Count 169 Mean Platelet Volume 12.2 H Neutrophils % 72.1 Lymphocytes % 20.7 Monocytes % 6.2 Eosinophils % 0.4 Basophils % 0.2 Nucleated Red Blood Cells % 0.0 Neutrophils # 3.7 Lymphocytes # 1.1 Monocytes # 0.3 Eosinophils # 0.0 Basophils # 0.0 Nucleated Red Blood Cells # 0.0 Sodium Level 140 Potassium Level 4.3 Chloride Level 103 Carbon Dioxide Level 27 Anion Gap 14 Blood Urea Nitrogen 17 Creatinine 0.63 Glucose Level 187 Calcium Level 8.4 Phosphorus Level 3.4 Magnesium Level 1.9 Alpha Fetoprotein 5.23 Test 06/18/17 07:57 Bedside Glucose 163 Medications Medications Current Medications Dextrose/Sodium Chloride (D5-1/2ns) 1,000 ml @ 100 mls/hr Q10H IV Last administered on 06/18/17 02:55; Admin Dose 100 MLS/HR; Start 06/17/17 at 03: 47 Ondansetron HCl (Zofran Inj) 4 mg Q6H PRN IV NAUSEA AND/OR VOMITING; Start at 04:00 Acetaminophen (Tylenol Supp) 650 mg Q6H PRN [place] PAIN LEVEL 1-3 OR FEVER; Start 06/17/17 at 04:00 Oxycodone/ Acetaminophen (Percocet (5/ 325)) 2 tab Q6H PRN PO SEVERE PAIN LEVEL 7-10 Last administered on 06/18/17 09:40; Admin Dose 2 TAB; Start 06/17 at 04:00 Morphine Sulfate (morphine) 2 mg Q4H PRN IV SEVERE PAIN LEVEL 7-10 Last administered on 06/17/17 22:35; Admin Dose 2 MG; Start 06/17/17 at 04:00 Enoxaparin Sodium (Lovenox) 40 mg DAILY SC Last administered on 06/18/17 10: 31; Admin Dose 40 MG; Start 06/17/17 at 09:00 Diagnostic Test (Pha) (Accu-Chek) 1 ea 02 XX ; Start 06/18/17 at 02:00 Gabapentin (Neurontin) 800 mg TID PO Last administered on 06/18/17 09:40; Admin Dose 800 MG; Start 06/17/17 at 09:00 Insulin Glargine (Lantus) 20 unit QHS SC Last administered on 06/17/17 21:50 ; Admin Dose 20 UNIT; Start 06/17/17 at 21:00 Lisinopril (Zestril) 10 mg QHS PO Last administered on 06/17/17 21:31; Admin Dose 10 MG; Start 06/17/17 at 21:00 Lidocaine (Xylocaine (Viscous)) 15 ml QID PRN PO oral pain; Start 06/17/17 at 04:00 Nicotine (Nicoderm 21 Mg/ 24hr) 1 patch DAILY TRANSDERM Last administered on 09:50; Admin Dose 1 PATCH; Start 06/17/17 at 09:00 Chlordiazepoxide 50 mg 50 mg TID PO Last administered on 06/18/17 09:40; Admin Dose 50 MG; Start 06/17/17 at 09:00 Multivitamins/ Thiamine HCl/ Folic Acid/Sodium Chloride (Mvi Adult/ Vitamin B1/ Folic Acid/NS) 1,011.2 ml @ 125 mls/ hr DAILY@09 IVPB Last administered on 09:39; Admin Dose 125 MLS/HR; Start 06/17/17 at 09:00; Stop 06/20/17 at 15:00 Lorazepam (Ativan) 2 mg Q1H PRN IV withdrawal; Start 06/17/17 at 04:30 Lorazepam (Ativan) 1 mg Q3H PRN IV anxiety; Start 06/17/17 at 04:30 Metoprolol Tartrate (Lopressor) 12.5 mg BID NGT Last administered on 09:42; Admin Dose 12.5 MG; Start 06/17/17 at 09:00 Miscellaneous Information 1 ea NOTE XX ; Start 06/17/17 at 04:15 Glucose (Glutose) 15 gm Q15M PRN PO DECREASED GLUCOSE; Start 06/17/17 at 04:15 Glucose (Glutose) 22.5 gm Q15M PRN PO DECREASED GLUCOSE; Start 06/17/17 at 04: 15 Dextrose (D50w Syringe) 25 ml Q15M PRN IV DECREASED GLUCOSE; Start 06/17/17 at 04:15 Dextrose (D50w Syringe) 50 ml Q15M PRN IV DECREASED GLUCOSE; Start 06/17/17 at 04:15 Glucagon (Glucagen) 1 mg Q15M PRN IM DECREASED GLUCOSE; Start 06/17/17 at 04: 15 Glucose (Glutose) 15 gm Q15M PRN BUCCAL DECREASED GLUCOSE; Start 06/17/17 at 04:15 Trimethoprim/ Sulfamethoxazole 1 tab 1 tab DAILY PO Last administered on 09:40; Admin Dose 1 TAB; Start 06/18/17 at 09:00 Fluconazole (Diflucan 200 Mg/ NS (Pmx)) 100 ml @ 100 mls/hr Q24H IVPB Last administered on 06/17/17 16:29; Admin Dose 100 MLS/HR; Start 06/17/17 at 15: 00 Nystatin (Nystatin Susp) 5 ml QID PO Last administered on 06/18/17 09:39; Admin Dose 5 ML; Start 06/17/17 at 17:00 Diagnostic Test (Pha) 1 ea 1 ea 02 XX ; Start 06/18/17 at 02:00 Vancomycin HCl 1.25 gm/Sodium Chloride 250 ml @ 83.333 mls/ hr ONCE@11 IVPB ; Start 06/18/17 at 11:00; Stop 06/18/17 at 16:00 Vancomycin HCl (Vancocin) 250 ml @ 125 mls/hr Q12H IVPB ; Start 06/18/17 at 23 :00 KAYDEN SEVERINO Jun 18, 2017 11:19 Glucose (Glutose) 22.5 gm Q15M PRN PO DECREASED GLUCOSE; Start 06/17/17 at 04: 15 Dextrose (D50w Syringe) 25 ml Q15M PRN IV DECREASED GLUCOSE; Start 06/17/17 at 04:15 Dextrose (D50w Syringe) 50 ml Q15M PRN IV DECREASED GLUCOSE; Start 06/17/17 at 04:15 Glucagon (Glucagen) 1 mg Q15M PRN IM DECREASED GLUCOSE; Start 06/17/17 at 04: 15 Glucose (Glutose) 15 gm Q15M PRN BUCCAL DECREASED GLUCOSE; Start 06/17/17 at 04:15 Trimethoprim/ Sulfamethoxazole 1 tab 1 tab DAILY PO Last administered on 09:40; Admin Dose 1 TAB; Start 06/18/17 at 09:00 Fluconazole (Diflucan 200 Mg/ NS (Pmx)) 100 ml @ 100 mls/hr Q24H IVPB Last administered on 06/17/17 16:29; Admin Dose 100 MLS/HR; Start 06/17/17 at 15: 00 Nystatin (Nystatin Susp) 5 ml QID PO Last administered on 06/18/17 09:39; Admin Dose 5 ML; Start 06/17/17 at 17:00 Diagnostic Test (Pha) 1 ea 1 ea 02 XX ; Start 06/18/17 at 02:00 Vancomycin HCl 1.25 gm/Sodium Chloride 250 ml @ 83.333 mls/ hr ONCE@11 IVPB ; Start 06/18/17 at 11:00; Stop 06/18/17 at 16:00 Vancomycin HCl (Vancocin) 250 ml @ 125 mls/hr Q12H IVPB ; Start 06/18/17 at 23 :00 KAYDEN SEVERINO Jun 18, 2017 11:19
--- NOTE | 2017-06-18 11:59 | PN ---
Date/Time of Note Date/Time of Note DATE: 06/18/17 TIME: 11:57 Assessment/Plan VTE Prophylaxis VTE Prophylaxis Intervention: SCD's Lines/Catheters IV Catheter Type (from [facility]): Peripheral IV Urinary Cath still in place: No Assessment/Plan Chief Complaint/Hosp Course Summary Assessment and Plan: Assessment: Dysphagia and odynophagia secondary to oral Aneta and esophageal candidiasis vs reflux esophagitis AIDS per CD4 count (per report 107) Diabetes mellitus type 2 Alcohol abuse Chest pain Diarrhea Plan: C. difficile culture pending Stool culture pending NPO after midnight EGD tomorrow Continue antifungal treatment Patient seen in collaboration with Subjective: Course reviewed with nursing staff Patient interviewed and examined All labs, imaging and other results reviewed The patient resting in bed, with paper tape over his mouth. When asked why paper tape this there patient, shook his head no. Discussed with patient plan for EGD tomorrow afternoo/evening. Patient shook his head yes. PHYSICAL EXAMINATION: GENERAL: Cachectic, oriented x3 in no acute distress SKIN: No lesions, no stigmata chronic liver disease, no evidence of bleeding diathesis LYMPHATIC: No palpable lymphadenopathy. HEAD: Normocephalic, atraumatic, no tenderness. EYES: Pupils equal reactive to light and accommodation, full extraocular movements, sclera clear, non-icteric, no discharge. EARS/NOSE AND THROAT: Ears normal, nose normal NECK: Supple, CHEST: Inspection within normal limits. CARDIOVASCULAR: Heart: Regular rate and rhythm, . RESPIRATORY: Lungs clear to auscultation GASTROINTESTINAL AND LIVER: Abdomen: Soft, non tenderness, non-distended, no hernias, no masses, no organomegaly, no ascites, no guarding, no rebound tenderness, normoactive bowel sounds. Rectal: Deferred. EXTREMITIES: No cyanosis, clubbing or edema. Problems: Exam/Review of Systems Vital Signs Vitals Vital Signs Date Time Temp Pulse Resp B/P Pulse Ox O2 Delivery O2 Flow Rate FiO2 06/18/17 07:56 98.0 85 18 129/83 95 06/17/17 01:56 Room Air 06/16/17 22:06 2 Intake and Output 06/17/17 06/17/17 06/18/17 15:00 23:00 07:00 Intake Total 1911.2 ml 900 ml Output Total 600 ml Balance 1311.2 ml 900 ml Results Result Diagram: 06/18/17 0533 06/18/17 0533 Results 24 hrs Laboratory Tests Test 06/17/17 12:36 06/17/17 17:16 06/17/17 21:41 06/18/17 05:33 Bedside Glucose 135 87 135 White Blood Count 5.2 # Red Blood Count 3.99 L Hemoglobin 10.3 L Hematocrit 33.5 L Mean Corpuscular Volume 84.0 Mean Corpuscular Hemoglobin 25.8 L Mean Corpuscular Hemoglobin Concent 30.7 L Red Cell Distribution Width 15.9 H Platelet Count 169 Mean Platelet Volume 12.2 H Neutrophils % 72.1 Lymphocytes % 20.7 Monocytes % 6.2 Eosinophils % 0.4 Basophils % 0.2 Nucleated Red Blood Cells % 0.0 Neutrophils # 3.7 Lymphocytes # 1.1 Monocytes # 0.3 Eosinophils # 0.0 Basophils # 0.0 Nucleated Red Blood Cells # 0.0 Sodium Level 140 Potassium Level 4.3 Chloride Level 103 Carbon Dioxide Level 27 Anion Gap 14 Blood Urea Nitrogen 17 Creatinine 0.63 Glucose Level 187 Calcium Level 8.4 Phosphorus Level 3.4 Magnesium Level 1.9 Alpha Fetoprotein 5.23 Test 06/18/17 07:57 Bedside Glucose 163 Medications Medications Current Medications Dextrose/Sodium Chloride (D5-1/2ns) 1,000 ml @ 100 mls/hr Q10H IV Last administered on 06/18/17 02:55; Admin Dose 100 MLS/HR; Start 06/17/17 at 03: 47 Ondansetron HCl (Zofran Inj) 4 mg Q6H PRN IV NAUSEA AND/OR VOMITING; Start at 04:00 Acetaminophen (Tylenol Supp) 650 mg Q6H PRN OR PAIN LEVEL 1-3 OR FEVER; Start 06/17/17 at 04:00 Oxycodone/ Acetaminophen (Percocet (5/ 325)) 2 tab Q6H PRN PO SEVERE PAIN LEVEL 7-10 Last administered on 06/18/17 09:40; Admin Dose 2 TAB; Start 06/17 at 04:00 Morphine Sulfate (morphine) 2 mg Q4H PRN IV SEVERE PAIN LEVEL 7-10 Last administered on 06/17/17 22:35; Admin Dose 2 MG; Start 06/17/17 at 04:00 Enoxaparin Sodium (Lovenox) 40 mg DAILY SC Last administered on 06/18/17 10: 31; Admin Dose 40 MG; Start 06/17/17 at 09:00 Diagnostic Test (Pha) (Accu-Chek) 1 ea 02 XX ; Start 06/18/17 at 02:00 Gabapentin (Neurontin) 800 mg TID PO Last administered on 06/18/17 09:40; Admin Dose 800 MG; Start 06/17/17 at 09:00 Insulin Glargine (Lantus) 20 unit QHS SC Last administered on 06/17/17 21:50 ; Admin Dose 20 UNIT; Start 06/17/17 at 21:00 Lisinopril (Zestril) 10 mg QHS PO Last administered on 06/17/17 21:31; Admin Dose 10 MG; Start 06/17/17 at 21:00 Lidocaine (Xylocaine (Viscous)) 15 ml QID PRN PO oral pain; Start 06/17/17 at 04:00 Nicotine (Nicoderm 21 Mg/ 24hr) 1 patch DAILY TRANSDERM Last administered on 09:50; Admin Dose 1 PATCH; Start 06/17/17 at 09:00 Chlordiazepoxide 50 mg 50 mg TID PO Last administered on 06/18/17 09:40; Admin Dose 50 MG; Start 06/17/17 at 09:00 Multivitamins/ Thiamine HCl/ Folic Acid/Sodium Chloride (Mvi Adult/ Vitamin B1/ Folic Acid/NS) 1,011.2 ml @ 125 mls/ hr DAILY@09 IVPB Last administered on 09:39; Admin Dose 125 MLS/HR; Start 06/17/17 at 09:00; Stop 06/20/17 at 15:00 Lorazepam (Ativan) 2 mg Q1H PRN IV withdrawal; Start 06/17/17 at 04:30 Lorazepam (Ativan) 1 mg Q3H PRN IV anxiety; Start 06/17/17 at 04:30 Metoprolol Tartrate (Lopressor) 12.5 mg BID NGT Last administered on 09:42; Admin Dose 12.5 MG; Start 06/17/17 at 09:00 Miscellaneous Information 1 ea NOTE XX ; Start 06/17/17 at 04:15 Glucose (Glutose) 15 gm Q15M PRN PO DECREASED GLUCOSE; Start 06/17/17 at 04:15 Glucose (Glutose) 22.5 gm Q15M PRN PO DECREASED GLUCOSE; Start 06/17/17 at 04: 15 Dextrose (D50w Syringe) 25 ml Q15M PRN IV DECREASED GLUCOSE; Start 06/17/17 at 04:15 Dextrose (D50w Syringe) 50 ml Q15M PRN IV DECREASED GLUCOSE; Start 06/17/17 at 04:15 Glucagon (Glucagen) 1 mg Q15M PRN IM DECREASED GLUCOSE; Start 06/17/17 at 04: 15 Glucose (Glutose) 15 gm Q15M PRN BUCCAL DECREASED GLUCOSE; Start 06/17/17 at 04:15 Trimethoprim/ Sulfamethoxazole 1 tab 1 tab DAILY PO Last administered on 09:40; Admin Dose 1 TAB; Start 06/18/17 at 09:00 Fluconazole (Diflucan 200 Mg/ NS (Pmx)) 100 ml @ 100 mls/hr Q24H IVPB Last administered on 06/17/17 16:29; Admin Dose 100 MLS/HR; Start 06/17/17 at 15: 00 Nystatin (Nystatin Susp) 5 ml QID PO Last administered on 06/18/17 09:39; Admin Dose 5 ML; Start 06/17/17 at 17:00 Diagnostic Test (Pha) 1 ea 1 ea 02 XX ; Start 06/18/17 at 02:00 Vancomycin HCl 1.25 gm/Sodium Chloride 250 ml @ 83.333 mls/ hr ONCE@11 IVPB Last administered on 06/18/17 11:51; Admin Dose 83.333 MLS/HR; Start at 11:00; Stop 06/18/17 at 16:00 Vancomycin HCl (Vancocin) 250 ml @ 125 mls/hr Q12H IVPB ; Start 06/18/17 at 23 :00 KAYDEN SEVERINO Jun 18, 2017 11:59
[2017-06-18 13:20] LABS: HEPATITIS B CORE ANTIBODY REACTIVE (NEGATIVE)
--- NOTE | 2017-06-18 13:22 | PN ---
Date/Time of Note Date/Time of Note DATE: 06/18/17 TIME: 13:12 Assessment/Plan VTE Prophylaxis VTE Prophylaxis Intervention: LMWH Lines/Catheters IV [facility] Type (from [facility]): Peripheral IV Urinary Cath still in place: No Assessment/Plan Chief Complaint/Hosp Course 1. Dysphagia and odynophagia, secondary to oral/esophageal Aneta -IV fluconazole, nystatin swish and swallow, viscous lidocaine -ID and a GI consults appreciated, plan for EGD tomorrow -Pain management 2. History of HIV, AIDS per CD4 count (per report 107) -Follow-up on CD4 count and viral load to verify -Continue prophylactic daily Bactrim and weekly azithromycin -ID consult 3. Type 2 diabetes A1c 7.9 Insulin while in-house 4. Alcohol abuse -Patient has been drinking half a gallon of chidi on a daily basis, last drink was day prior to admission Continue banana bag, Librium, IV fluid, with as needed Ativan for withdrawal symptoms 5. Chest pain secondary to dysphasia -ACS ruled out -Echo does show an EF 30%, no other abnormalities 6. CHF with an EF of 30% Likely chronic secondary to alcohol abuse No history of coronary disease or MIs in the past Defer workup at this time, further workup can be done as an outpatient 7. Bacteremia likely secondary to staph Vancomycin IV Follow-up on final culture results Prophylaxis: Lovenox Problems: Subjective 24 Hr Interval Summary Gastrointestinal: other (Pain with swallowing) Exam/Review of Systems Vital Signs Vitals Vital Signs Date Time Temp Pulse Resp B/P Pulse Ox O2 Delivery O2 Flow Rate FiO2 06/18/17 07:56 98.0 85 18 129/83 95 06/17/17 01:56 Room Air 06/16/17 22:06 2 Intake and Output 06/17/17 06/17/17 06/18/17 15:00 23:00 07:00 Intake Total 1911.2 ml 900 ml Output Total 600 ml Balance 1311.2 ml 900 ml Exam Constitutional: alert Respiratory: clear to auscultation Cardiovascular: regular rate and rhythm Gastrointestinal: soft, No distended Musculoskeletal: nl extremities to inspection Results Result Diagram: 06/18/17 0533 06/18/17 0533 Results 24 hrs Laboratory Tests Test 06/17/17 17:16 06/17/17 21:41 06/18/17 05:32 06/18/17 05:33 Bedside Glucose 87 135 Hepatitis B Surface Antibody INDETERMINATE White Blood Count 5.2 # Red Blood Count 3.99 L Hemoglobin 10.3 L Hematocrit 33.5 L Mean Corpuscular Volume 84.0 Mean Corpuscular Hemoglobin 25.8 L Mean Corpuscular Hemoglobin Concent 30.7 L Red Cell Distribution Width 15.9 H Platelet Count 169 Mean Platelet Volume 12.2 H Neutrophils % 72.1 Lymphocytes % 20.7 Monocytes % 6.2 Eosinophils % 0.4 Basophils % 0.2 Nucleated Red Blood Cells % 0.0 Neutrophils # 3.7 Lymphocytes # 1.1 Monocytes # 0.3 Eosinophils # 0.0 Basophils # 0.0 Nucleated Red Blood Cells # 0.0 Sodium Level 140 Potassium Level 4.3 Chloride Level 103 Carbon Dioxide Level 27 Anion Gap 14 Blood Urea Nitrogen 17 Creatinine 0.63 Glucose Level 187 Calcium Level 8.4 Phosphorus Level 3.4 Magnesium Level 1.9 Alpha Fetoprotein 5.23 Test 06/18/17 07:57 06/18/17 12:41 Bedside Glucose 163 160 Medications Medications Current Medications Dextrose/Sodium Chloride (D5-1/2ns) 1,000 ml @ 100 mls/hr Q10H IV Last administered on 06/18/17 02:55; Admin Dose 100 MLS/HR; Start 06/17/17 at 03: 47 Ondansetron HCl (Zofran Inj) 4 mg Q6H PRN IV NAUSEA AND/OR VOMITING; Start at 04:00 Acetaminophen (Tylenol Supp) 650 mg Q6H PRN ID PAIN LEVEL 1-3 OR FEVER; Start 06/17/17 at 04:00 Oxycodone/ Acetaminophen (Percocet (5/ 325)) 2 tab Q6H PRN PO SEVERE PAIN LEVEL 7-10 Last administered on 06/18/17 09:40; Admin Dose 2 TAB; Start 06/17 at 04:00 Morphine Sulfate (morphine) 2 mg Q4H PRN IV SEVERE PAIN LEVEL 7-10 Last administered on 06/17/17 22:35; Admin Dose 2 MG; Start 06/17/17 at 04:00 Enoxaparin Sodium (Lovenox) 40 mg DAILY SC Last administered on 06/18/17 10: 31; Admin Dose 40 MG; Start 06/17/17 at 09:00 Diagnostic Test (Pha) (Accu-Chek) 1 ea 02 XX ; Start 06/18/17 at 02:00 Gabapentin (Neurontin) 800 mg TID PO Last administered on 06/18/17 12:38; Admin Dose 800 MG; Start 06/17/17 at 09:00 Insulin Glargine (Lantus) 20 unit QHS SC Last administered on 06/17/17 21:50 ; Admin Dose 20 UNIT; Start 06/17/17 at 21:00 Lisinopril (Zestril) 10 mg QHS PO Last administered on 06/17/17 21:31; Admin Dose 10 MG; Start 06/17/17 at 21:00 Lidocaine (Xylocaine (Viscous)) 15 ml QID PRN PO oral pain; Start 06/17/17 at 04:00 Nicotine (Nicoderm 21 Mg/ 24hr) 1 patch DAILY TRANSDERM Last administered on 09:50; Admin Dose 1 PATCH; Start 06/17/17 at 09:00 Chlordiazepoxide 50 mg 50 mg TID PO Last administered on 06/18/17 12:38; Admin Dose 50 MG; Start 06/17/17 at 09:00 Multivitamins/ Thiamine HCl/ Folic Acid/Sodium Chloride (Mvi Adult/ Vitamin B1/ Folic Acid/NS) 1,011.2 ml @ 125 mls/ hr DAILY@09 IVPB Last administered on 09:39; Admin Dose 125 MLS/HR; Start 06/17/17 at 09:00; Stop 06/20/17 at 15:00 Lorazepam (Ativan) 2 mg Q1H PRN IV withdrawal; Start 06/17/17 at 04:30 Lorazepam (Ativan) 1 mg Q3H PRN IV anxiety; Start 06/17/17 at 04:30 Metoprolol Tartrate (Lopressor) 12.5 mg BID NGT Last administered on 09:42; Admin Dose 12.5 MG; Start 06/17/17 at 09:00 Miscellaneous Information 1 ea NOTE XX ; Start 06/17/17 at 04:15 Glucose (Glutose) 15 gm Q15M PRN PO DECREASED GLUCOSE; Start 06/17/17 at 04:15 Glucose (Glutose) 22.5 gm Q15M PRN PO DECREASED GLUCOSE; Start 06/17/17 at 04: 15 Dextrose (D50w Syringe) 25 ml Q15M PRN IV DECREASED GLUCOSE; Start 06/17/17 at 04:15 Dextrose (D50w Syringe) 50 ml Q15M PRN IV DECREASED GLUCOSE; Start 06/17/17 at 04:15 Glucagon (Glucagen) 1 mg Q15M PRN IM DECREASED GLUCOSE; Start 06/17/17 at 04: 15 Glucose (Glutose) 15 gm Q15M PRN BUCCAL DECREASED GLUCOSE; Start 06/17/17 at 04:15 Trimethoprim/ Sulfamethoxazole 1 tab 1 tab DAILY PO Last administered on 09:40; Admin Dose 1 TAB; Start 06/18/17 at 09:00 Fluconazole (Diflucan 200 Mg/ NS (Pmx)) 100 ml @ 100 mls/hr Q24H IVPB Last administered on 06/17/17 16:29; Admin Dose 100 MLS/HR; Start 06/17/17 at 15: 00 Nystatin (Nystatin Susp) 5 ml QID PO Last administered on 06/18/17 12:38; Admin Dose 5 ML; Start 06/17/17 at 17:00 Diagnostic Test (Pha) 1 ea 1 ea 02 XX ; Start 06/18/17 at 02:00 Vancomycin HCl 1.25 gm/Sodium Chloride 250 ml @ 83.333 mls/ hr ONCE@11 IVPB Last administered on 06/18/17 11:51; Admin Dose 83.333 MLS/HR; Start at 11:00; Stop 06/18/17 at 16:00 Vancomycin HCl (Vancocin) 250 ml @ 125 mls/hr Q12H IVPB ; Start 06/18/17 at 23 :00 JERZY MARTINEZ Jun 18, 2017 13:22
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
--- NOTE | 2017-06-18 15:40 | DS ---
Date/Time of Note Date/Time of Note DATE: 06/18/17 TIME: 15:35 Discharge Summary Admission/Discharge Info Admit Date/Time Jun 17, 2017 at 00:02 Discharge Date/Time Jun 18, 2017 at 14:30 Discharge Diagnosis Patient left AMA 1. Dysphagia and odynophagia, secondary to oral/esophageal Aneta Patient left AGAINST MEDICAL ADVICE 2. History of HIV, AIDS per CD4 count (per report 107) Reportedly follows up with an HIV clinic 3. Type 2 diabetes A1c 7.9 4. Alcohol abuse -Patient has been drinking half a gallon of chidi on a daily basis, last drink was day prior to admission Status post banana bag 5. Chest pain secondary to dysphasia -ACS ruled out -Echo does show an EF 30%, no other abnormalities 6. CHF with an EF of 30% Likely chronic secondary to alcohol abuse No history of coronary disease or MIs in the past -Left AGAINST MEDICAL ADVICE 7. Bacteremia likely secondary to staph Vancomycin IV -Left AGAINST MEDICAL ADVICE Hospital Course Patient is a 62-year-old male with a history of hypertension, type 2 diabetes, hep C, HIV, alcohol abuse who presented to the ER complaining of "thrush", difficulty and painful swallowing. Note that patient is having pain when speaking and as such gathering information has been difficult. Patient was seen by ID and GI plan was for EGD. Patient was started on Bactrim and fluconazole, blood and urine cultures did show staph and was started on vancomycin IV. Patient does appear to have a history of noncompliance and ultimately left AGAINST MEDICAL ADVICE. Home Meds Reported Medications Gabapentin* (Neurontin*) 800 Mg Tablet, 800 MG PO TID, #90 TAB 06/17/17 Metformin* (Glucophage*) 500 Mg Tab, 500 MG PO WITH MEALS, #90 TAB 06/17/17 Insulin Glargine* (Lantus*) 100 Unit/Ml Soln, 20 UNIT SC QHS, #1 VIAL 06/17/17 Lisinopril* (Lisinopril*) 10 Mg Tablet, 10 MG PO QHS, #30 TAB 06/17/17 Primary Care Provider Care Physician No Primary Time spent on discharge: < 30 minutes JERZY MARTINEZ Jun 18, 2017 15:40
[2017-06-18] MEDS ORDERED: VANCOMYCIN 1 GM in NS 250 ML IVPB SCH (23:00)
[2017-06-19 11:32] LABS: LYMPHOCYTE - % CD4 (HELPER) 4 % (30-61); LYMPHOCYTE - %CD8 (SUPPRESSOR) 82 % (12-42); LYMPHOCYTE - ABSOLUTE CD4 42 cells/uL (490-1740); LYMPHOCYTE - ABSOLUTE CD8 861 cells/uL (180-1170); LYMPHOCYTE - CD4/CD8 RATIO 0.05 (0.86-5.00)
== END 2017-06-18 14:30 | disposition left against medical advice (07) | DRG 975 ==
LOC: E/R 21:28 → MS2 06-17 00:02
PROVIDERS: ADMIT Internal Medicine; ATTEND Internal Medicine
DX: B37.81 Candidal esophagitis (principal); B20 Human immunodeficiency virus [HIV] disease; R64 Cachexia; I11.0 Hypertensive heart disease with heart failure; I50.9 Heart failure, unspecified; B37.0 Candidal stomatitis; Z68.1 Body mass index [BMI] 19.9 or less, adult; F10.10 Alcohol abuse, uncomplicated; R07.9 Chest pain, unspecified; R19.7 Diarrhea, unspecified; E11.42 Type 2 diabetes mellitus with diabetic polyneuropathy; F17.200 Nicotine dependence, unspecified, uncomplicated; I70.0 Atherosclerosis of aorta; B95.7 Other staphylococcus as the cause of diseases classified elsewhere; Z86.19 Personal history of other infectious and parasitic diseases; Z59.0 Homelessness; Z91.19 Patient's noncompliance with other medical treatment and regimen
CPT/HCPCS: 36415; 71010; 80048; 80053; 80061; 82105; 82550; 82553; 82962; 83036; 83735; 83880; 84100; 84443; 84484; 85025; 86360; 86701; 86703; 86704; 86706; 86803; 87040; 87070; 87086; 87340; 87522; 87536; 92610; 93005; 93306; 96374; 96375; J1170; J1450; J1650; J1815; J2270; J2405; J3370; J3411; J7030; J7042; J7050